=== PATIENT | male | born 1985 | race Hispanic/Latino ===

== ENCOUNTER 2019-05-20 13:30 | Emergency (ER) | payer SELFPAY ==
[2019-05-20 14:26] VITALS: BP 120/73
[2019-05-20] MEDS ORDERED: IBUPROFEN 600 MG TAB PO ONE ×2 (14:27→14:28)
--- NOTE | 2019-05-20 14:27 | Emergency Department Report ---
{null, Blank Doc - Documentation Documentation: 34-year-old male w/ PMH of HIV presents with fever and URI symptoms. This initial assessment/diagnostic orders/clinical plan/treatment(s) is/are subject to change based on patient's health status, clinical progression and re- assessment by fellow clinical providers in the ED. Further treatment and workup at subsequent clinical providers discretion. Patient/guardians urged not to elope from the ED as their condition may be serious if not clinically assessed and managed. Initial orders include: 1- Patient sent to [facility] for further evaluation and treatment 2- Xrays 3- flu swab 4- motrin- RN to repeat vitals }
--- NOTE | 2019-05-20 14:56 | XRay Report ---
{null, CHEST PA AND LATERAL VIEWS INDICATION: cough/fever. COMPARISON: None. FINDINGS: Support devices: None. Heart: Within normal limits. Lungs/Pleura: No acute pulmonary or pleural findings. IMPRESSION: 1. No acute findings. Signer Name: Adria Mckinney MD Signed: 05/20/2019 2:52 PM Workstation Name: [id number] }
--- NOTE | 2019-05-20 18:08 | Emergency Department Report ---
{null, Chief Complaint: Upper Respiratory Infection Stated Complaint: FLU SYM Time Seen by Provider: 05/20/19 14:26 - HPI History of Present Illness: 34-year-old male presents to the emergency room complaining of 2-day history of body aches nausea vomiting weakness chills and cough. Patient is HIV positive. Patient states has not taken anything for his cold-like symptoms. - Exam Vital Signs: Vital Signs 05/20/19 05/20/19 14:24 14:29 Temperature 101.9 F H Pulse Rate 86 Respiratory 20 20 Rate Blood Pressure 120/73 O2 Sat by Pulse 97 Oximetry Physical Exam: Patient is alert and oriented x3 no acute distress nontoxic in appearance. HEENT oral Verrunex is moist no tonsillar hypertrophy or exudate airway is patent. Chest clear to auscultation bilateral Cardiac regular rate and rhythm no murmurs appreciated Abdomen soft nontender nondistended no guarding Patient is ambulatory without difficulty. MSE screening note: Focused history and physical exam performed. Due to findings the following was ordered: 34-year-old male presents to the emergency room complaining of 2-day history of body aches nausea vomiting weakness chills and cough. Patient is HIV positive. Patient states has not taken anything for his cold-like symptoms. Chest x-ray shows no acute abnormalities flu negative for a and B. Because patient has a status of HIV will place patient on Tamiflu and patient can take dsde-tyh-xldfqit Robitussin. Patient needs to follow-up with his infectious disease provider. Encourage patient to drink plenty of fluids take ibuprofen or Tylenol for body aches. ED Medical Decision Making - Lab Data Laboratory Last Values Influenza A (Rapid) Negative (Negative) 05/20/19 Unknown Influenza B (Rapid) Negative (Negative) 05/20/19 Unknown - Radiology Data Radiology results: report reviewed Patient: ALICIA BARNES MR#: [id number] 04 : 1985 Acct:[id number] Age/Sex: 34 / M ADM Date: 05/20/19 Loc: ED Attending Dr: Ordering Physician: DIONISIO MICHEL NP Date of Service: 05/20/19 Procedure(s): XR chest routine 2V Accession Number(s): [id number] cc: DIONISIO MICHEL NP Fluoro Time In Minutes: CHEST PA AND LATERAL VIEWS INDICATION: cough/fever. COMPARISON: None. FINDINGS: Support devices: None. Heart: Within normal limits. Lungs/Pleura: No acute pulmonary or pleural findings. IMPRESSION: 1. No acute findings. Signer Name: Adria Mckinney MD Signed: 05/20/2019 2:52 PM Workstation Name: [id number] Transcribed By: WALE Dictated By: Adria Mckinney MD Electronically Authenticated By: Adria Mckinney MD Signed Date/Time: 05/20/191451 DD/ 50 TD/TT: ED Disposition for MSE Clinical Impression: Viral syndrome, HIV (human immunodeficiency virus infection), Cough Disposition: Z-07 MED SCREENING EXAM-LEFT Is pt being admited?: No Does the pt Need Aspirin: No Condition: Stable Instructions: Viral Syndrome (ED) Additional Instructions: Take Tamiflu as prescribed. You can take Tylenol or ibuprofen for body aches fever. Take peud-bwk-qmutrws Robitussin or Mucinex and Claritin for cough. Follow-up with your infectious disease provider. Prescriptions: Oseltamivir [Tamiflu] 75 mg PO BID 5 Days #10 cap Referrals: You, primary care provider [Other] - 3-5 Days Forms: Work/School Release Form(ED) }
== END 2019-05-20 19:05 | disposition left against medical advice (07) ==
LOC: ED 13:30
DX: B34.9 Viral infection, unspecified (principal)
CPT/HCPCS: 71046; 87400